=== PATIENT | male | born 1940 | race Caucasian/White ===

== ENCOUNTER 2019-01-14 17:20 | Inpatient (IN) | payer MEDICARE, BC, OTHER | END 2019-01-18 18:00 | disposition home or self-care (01) | LOC: SUR 3N 01-18 10:08 → ER 17:20 → SUR 3N 01-17 18:43 → ICU 2S 21:04 | PROC: 0DB78ZX Excision of Stomach, Pylorus, Via Natural or Artificial Opening Endoscopic, Diagnostic (ICD-10-PCS; principal; ~2019-01-14) | DX: K29.70 Gastritis, unspecified, without bleeding (principal); I21.A1 Myocardial infarction type 2; K26.4 Chronic or unspecified duodenal ulcer with hemorrhage; D64.9 Anemia, unspecified ==